=== PATIENT | female | born 1990 | race African-American/Black ===

== ENCOUNTER 2017-10-12 23:34 | Emergency (ER) | payer SELFPAY ==
[~2017-10-12] VITALS: Ht 149.9 cm; Wt 49.9 kg
[2017-10-12] MEDS ORDERED: TRUVADA 200 MG1 EAC1 ORAL (23:42)
[2017-10-12 23:50] VITALS: BP 112/51
[2017-10-12] MEDS ORDERED: VENTOLIN HFA18 GM INH (23:55)
[2017-10-12] MEDS ORDERED: TAMIFLU75 MG ORAL (23:55)
[2017-10-12] MEDS ORDERED: IBUPROFEN400 MG ORAL (23:55)
[2017-10-13] MEDS ORDERED: Albuterol ud Inhalation HHN ONE
--- NOTE | 2017-10-13 | Emergency Room Report ---
History of Present Illness General Chief Complaint: Flu Like Symptoms Source: Patient Present Illness HPI 27-year-old female with HIV on HAART presents with one to 2 days of fever, chills, sore throat and dry cough with myalgias. Patient got influenza vaccine this year. Has not taken any [id number] medications. No sick contacts. Denies abdominal pain, urinary complaints, headache, shortness of breath or chest pain. Allergies: Coded Allergies: No Known Allergies (Unverified , 10/12/17) Patient History Past Medical History: HIV Past Surgical History: none Pertinent Family History: none Last Menstrual Period: 09/20/17 Now: No Immunizations: UTD Reviewed Nursing Documentation: PMH: Agreed; PSxH: Agreed Nursing Documentation-PMH Past Medical History: No History, Except For Hx Cardiac Problems: No - HIV + Review of Systems All Other Systems: negative except mentioned in HPI Physical Exam Vital Signs Date Time Temp Pulse Resp B/P (MAP) Pulse Ox O2 Delivery O2 Flow Rate FiO2 10/12/17 23:37 99.4 96 16 112/51 95 99.3 Sp02 EP Interpretation: reviewed, normal General Appearance: normal inspection, well appearing, no apparent distress, alert, GCS 15, non-toxic, other - coughing Head: normocephalic, atraumatic Eyes: bilateral eye PERRL, bilateral eye EOMI ENT: normal ENT inspection, hearing grossly normal, normal pharynx, no angioedema, normal voice, TMs + canals normal, uvula midline, moist mucus membranes Neck: normal inspection, full range of motion, supple, thyroid normal, no meningismus, no bony tend Respiratory: normal inspection, lungs clear, normal breath sounds, no rhonchi, no respiratory distress, no retraction, no accessory muscle use, speaking full sentences, wheezing Cardiovascular #1: regular rate, rhythm, no edema, no JVD, normal capillary refill Gastrointestinal: normal inspection, normal bowel sounds, non tender, soft, no mass, no peritonitis, non-distended, no guarding, no hernia, no pulsatile mass Genitourinary: no CVA tenderness Musculoskeletal: normal inspection, back normal, normal range of motion, no calf tenderness, pelvis stable, Jairo's Sign negative Neurologic: normal inspection, alert, oriented x3, responsive, 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, motor strength/tone normal, cerebellar normal, normal gait, speech normal Psychiatric: normal inspection, judgement/insight normal, mood/affect normal, no suicidal/homicidal ideation, no delusions Skin: normal inspection, normal color, no rash Lymphatic: normal inspection, no adenopathy Medical Decision Making Diagnostic Impression: Primary Impression: Influenza-like symptoms ER Course Vital signs stable, afebrile No signs of bacterial infection on exam, low suspicion for pneumonia Given myalgias, subjective fevers and chills, and HIV status, important to treat empirically for influenza Prescription for Tamiflu provided as well as Ventolin and Motrin for symptomatically treatment Recommended close PMD follow-up Was given albuterol in and Motrin in the ER for mild wheeze heard on exam ER course: Patient has remained stable during ED stay. Disposition: Patient is to be discharged to home. Prescriptions given are ventolin, motrin, tamiflu Patient is instructed to follow up with their primary care doctor within 5 days. Strict return precautions discussed with patient such as fever, chills, worsening/severe pain, nausea, vomiting, which may indicate severe illness. Patient verbalizes understanding and agrees with plan. Please note that this Emergency Department Report was dictated using [employer] clerk technology software, occasionally this can lead to erroneous entry secondary to interpretation by the dictation equipment Last Vital Signs Date Time Temp Pulse Resp B/P (MAP) Pulse Ox O2 Delivery O2 Flow Rate FiO2 10/12/17 23:37 99.4 96 16 112/51 95 99.3 Status: improved Disposition: HOME, SELF-CARE Condition: Improved Scripts Albuterol Sulfate (VENTOLIN HFA) 18 Gm Hfa.aer.ad 1 PUFF INH EVERY 6 HOURS for cough, SOB, #18 GM 0 Refills Prov: LINWOOD MARTIN M.D. 10/12/17 Ibuprofen* (MOTRIN*) 400 Mg Tablet 400 MG ORAL THREE TIMES A DAY for body aches, fever/chills, #30 TAB 0 Refills Prov: LINWOOD MARTIN M.D. 10/12/17 Oseltamivir Phosphate (Tamiflu) 75 Mg Capsule 75 MG ORAL TWICE A DAY for 5 Days, #10 CAP Prov: LINWOOD MARTIN M.D. 10/12/17 Patient Instructions: Influenza, Adult, [id number] Additional Instructions: Take Tamiflu twice a day for next 5 days, with food for cough, use albuterol inhaler as needed up to 3-4 times a day Take Motrin with food as needed for bodyaches, sore throat or fever or chills Return to ER with any worsening symptoms LINWOOD MARTIN M.D. Oct 13, 2017 00:00
[2017-10-13 00:20] VITALS: BP 112/51
== END 2017-10-13 00:20 | disposition home or self-care (01) ==
LOC: EMR 23:59
DX: J11.1 Influenza due to unidentified influenza virus with other respiratory manifestations (principal); B20 Human immunodeficiency virus [HIV] disease
CPT/HCPCS: 94640; 94664; 99284

== ENCOUNTER 2017-12-28 21:57 | Emergency (ER) | payer MEDICAID ==
[~2017-12-28] VITALS: Ht 149.9 cm; Wt 53.5 kg
[~2017-12-28 21:57] MED LIST: IBUPROFEN400 MG ORAL; TAMIFLU75 MG ORAL; TRUVADA 200 MG1 EAC1 ORAL; VENTOLIN HFA18 GM INH
[2017-12-28 22:55] VITALS: BP 107/74
--- NOTE | 2017-12-29 05:05 | Emergency Room Report ---
History of Present Illness General Chief Complaint: Complications Source: Patient Present Illness HPI Patient is a 27-year-old female who presented after increased crampy abdominal pain. Patient denies any bleeding. She reports being approximately 7 weeks. Patient denies diarrhea. The patient reports having mild pain. Allergies: Coded Allergies: No Known Allergies (Unverified , 10/12/17) Patient History Past Medical History: see triage record Last Menstrual Period: october 31 Now: Yes - 7 weeks : 4 Para: 2 Reviewed Nursing Documentation: PMH: Agreed; PSxH: Agreed Nursing Documentation-PMH Past Medical History: No Stated History Hx Cardiac Problems: No - HIV + Review of Systems All Other Systems: negative except mentioned in HPI Physical Exam Vital Signs Date Time Temp Pulse Resp B/P (MAP) Pulse Ox O2 Delivery O2 Flow Rate FiO2 12/28/17 22:12 98.3 90 18 107/74 98 Room Air 98.2 General Appearance: well appearing, no apparent distress, alert, GCS 15 Head: normocephalic, atraumatic ENT: hearing grossly normal, normal voice Neck: full range of motion, supple Respiratory: no respiratory distress, speaking full sentences Gastrointestinal: normal inspection, non tender, soft, no mass Musculoskeletal: normal inspection, no calf tenderness Neurologic: normal inspection, alert, oriented x3, responsive, or scrub tech III-XII nml as tested, normal gait Psychiatric: mood/affect normal Skin: no rash Medical Decision Making Diagnostic Impression: Primary Impression: Intrauterine ER Course Patient is a for abdominal pain. Differential diagnosis included was not limited to round ligament pain, appendicitis, ovarian torsion, incomplete , ectopic , a completed , threatened among others. The patient denies any bleeding. The bedside ultrasound was performed and showed intrauterine with with heart tones approximately 150 bpm. No free fluid was noted. The patient was advised follow-up with her OB/ HOSPITAL SCIENTIST for care. The patient is advised to return if she began having increased cramping or bleeding or other concerns Last Vital Signs Date Time Temp Pulse Resp B/P (MAP) Pulse Ox O2 Delivery O2 Flow Rate FiO2 12/28/17 22:55 98.3 18 107/74 98 Room Air 98.2 12/28/17 22:12 90 Status: improved Disposition: HOME, SELF-CARE Condition: Stable Patient Instructions: First Trimester of Kwaem Graham MD Dec 29, 2017 05:04
== END 2017-12-28 22:55 | disposition home or self-care (01) ==
LOC: EMR 22:30
DX: O26.899 Other specified pregnancy related conditions, unspecified trimester (principal); Z3A.01 Less than 8 weeks gestation of pregnancy; R10.9 Unspecified abdominal pain
CPT/HCPCS: 99283